=== PATIENT | male | born 1960 ===

== ENCOUNTER 2025-04-02 10:20 | Emergency (ER) | payer OTHER ==
[~2025-04-02] VITALS: Ht 165.1 cm; Wt 77.1 kg
[2025-04-02] MEDS ORDERED: CEPH500 PO (11:12)
[2025-04-02] MEDS ORDERED: Mupirocin22 GM TOP (11:12)
== END 2025-04-02 11:58 | disposition home or self-care (01) ==
LOC: ER 10:20
DX: S91.012A Laceration without foreign body, left ankle, initial encounter (principal); W22.8XXA Striking against or struck by other objects, initial encounter
CPT/HCPCS: 73610; 99283-25; A9270